=== PATIENT | female | born 1960 | race African-American/Black ===

== ENCOUNTER 2021-09-07 19:24 | Emergency (ER) | payer OTHER ==
[~2021-09-07] VITALS: Ht 152.4 cm; Wt 68.0 kg
[~2021-09-07 19:24] MED LIST: AMBEREN; BENADRYL25 MG; CELEBREX; FISHOIL; FLEXERIL PO; GLUCOSAMINE1000 MG; IBUPROFEN 600600 M1 PO; LISINOPRIL-HCT1 EAC2 PO; NORCO 5-325 TA1 EACH PO; PRILOSEC; ZOCOR 20 MG TAB20 M1 PO
[2021-09-07] MEDS ORDERED: MULTIVITAMIN (19:38)
[2021-09-07] MEDS ORDERED: ASPIRI (19:38)
[2021-09-07] MEDS ORDERED: PLAVIX 75 MG TA75 MG PO (19:38)
[2021-09-07 21:02] VITALS: BP 129/75
== END 2021-09-07 21:49 | disposition home or self-care (01) ==
LOC: ER 19:24
DX: M25.531 Pain in right wrist (principal); M25.511 Pain in right shoulder; M25.521 Pain in right elbow; M79.601 Pain in right arm; Z79.899 Other long term (current) drug therapy; Z79.82 Long term (current) use of aspirin; V59.09XA Driver of pick-up truck or van injured in collision with other motor vehicles in nontraffic accident, initial encounter; Y93.89 Activity, other specified; Y92.89 Other specified places as the place of occurrence of the external cause; Y99.8 Other external cause status